=== PATIENT | male | born 1955 | race Caucasian/White ===

== ENCOUNTER 2023-03-25 13:49 | Emergency (ER) | payer SELFPAY ==
[~2023-03-25] VITALS: Ht 167.6 cm; Wt 75.3 kg
--- NOTE | 2023-03-25 13:55 | NUR ---
ER MD AT TRIAGE W/ PT FOR MSE
[2023-03-25] MEDS ORDERED: KETOROLAC TROMETHAMINE 15 MG INJ ONE (14:10)
[2023-03-25] MEDS ORDERED: HYDROCODONE/APAP 5-325MG TABLET ONE (14:10)
[2023-03-25] MEDS ORDERED: HYDROCODONE/APAP 5-325MG TABLET PO ONE (14:15)
[2023-03-25] MEDS ORDERED: KETOROLAC TROMETHAMINE 15 MG INJ IM ONE (14:15)
[2023-03-25] MEDS ORDERED: METH4TAB3 PO (14:36)
[2023-03-25] MEDS ORDERED: CYCL5TAB PO (14:36)
[2023-03-25] MEDS ORDERED: IBUP-1955 PO (14:36)
[2023-03-25] MEDS ORDERED: HYDR-3974 PO (14:36)
--- NOTE | 2023-03-25 14:48 | NUR ---
ABDOMINAL BINDER APPLIED; PT STATES HIS WAIST HAS MORE SUPPORT NOW; TOLERATED WELL
[2023-03-25 14:49] VITALS: BP 140/84
--- NOTE | 2023-03-25 14:49 | NUR ---
Patient discharged to home in stable condition. Written and verbal after care instructions given. Patient verbalizes understanding of instructions. Stressed follow up or return to ER for worsening s/s.
--- NOTE | 2023-03-25 14:50 | NUR ---
PT CAME WITH HIS DAUGHTER AND SHE WILL DRIVE HIM HOME. 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
== END 2023-03-25 14:51 | disposition home or self-care (01) ==
LOC: ER 13:49
DX: M54.42 Lumbago with sciatica, left side (principal); M54.41 Lumbago with sciatica, right side; G89.29 Other chronic pain; E11.9 Type 2 diabetes mellitus without complications
CPT/HCPCS: 99283; 82962; 96372; J1885; A4663

== ENCOUNTER 2023-04-02 14:20 | Emergency (ER) | payer MEDICAID ==
[~2023-04-02] VITALS: Ht 167.6 cm; Wt 75.3 kg
[~2023-04-02 14:20] MED LIST: CYCL5TAB PO; HYDR-3974 PO; IBUP-1955 PO; METH4TAB3 PO
[2023-04-02] MEDS ORDERED: diphenhydrAMINE 50 MG/1 ML VIAL IM ONE (15:15)
[2023-04-02] MEDS ORDERED: HYDROMORPHONE 1 MG/1 ML DISP.SYRIN IM ONE (15:15)
[2023-04-02] MEDS ORDERED: diphenhydrAMINE 50 MG/1 ML VIAL ONE (15:19)
[2023-04-02] MEDS ORDERED: HYDROMORPHONE 1 MG/1 ML DISP.SYRIN ONE (15:19)
--- NOTE | 2023-04-02 15:44 | NUR ---
Pt back from Ct resting in bed, denies pain/discomfort at this time.
[2023-04-02] MEDS ORDERED: OXYC-133 PO (17:10)
[2023-04-02 17:23] VITALS: BP 144/79
--- NOTE | 2023-04-02 17:30 | NUR ---
Patient discharged to home in stable condition. Written and verbal after care instructions given. Patient verbalizes understanding of instructions. Stressed follow up or return to ER for worsening s/s. Pt walked out of ER using own cane.
[2023-04-02] MEDS ORDERED: HYDR-3980 PO (18:09)
== END 2023-04-02 17:31 | disposition home or self-care (01) ==
LOC: ER 14:20
DX: M54.42 Lumbago with sciatica, left side (principal); M54.41 Lumbago with sciatica, right side; G89.29 Other chronic pain; E11.9 Type 2 diabetes mellitus without complications; Z79.1 Long term (current) use of non-steroidal anti-inflammatories (NSAID); Z79.899 Other long term (current) drug therapy
CPT/HCPCS: 99285; 72131; 96372 ×2; J1200; J1170; A4663

== ENCOUNTER 2023-12-19 14:42 | Emergency (ER) | payer MEDICARE, OTHER ==
[~2023-12-19] VITALS: Ht 167.6 cm; Wt 77.1 kg
[~2023-12-19 14:42] MED LIST changes: +CARI350T PO; +HYDR-3980 PO; +HYDR-4209 PO; +OXYC-133 PO
[2023-12-19 17:08] LABS: BASOPHILS % (AUTO) 0.5 % (0.0-2.0); EOSINOPHILS # (AUTO) 0.2 K/uL (0.0-0.7); EOSINOPHILS % (AUTO) 3.4 % (0.0-7.0); HEMATOCRIT 37.2 % (36.7-47.1); HEMOGLOBIN 12.2 g/dL (12.5-16.3); LYMPHOCYTES # (AUTO) 1.9 K/uL (0.8-4.8); LYMPHOCYTES % (AUTO) 34.8 % (20.5-51.5); MEAN CORPUSCULAR HEMOGLOBIN 30.5 uug (23.8-33.4); MEAN CORPUSCULAR HGB CONC 33 g/dL (32.5-36.3); MEAN CORPUSCULAR VOLUME 92.6 fL (73.0-96.2); MONOCYTES # (AUTO) 0.4 K/uL (0.1-1.30); MONOCYTES % (AUTO) 8.1 % (0.0-11.0); NEUTROPHILS # (AUTO) 2.9 K/uL (1.8-8.9); NEUTROPHILS % (AUTO) 53.2 % (38.5-71.5); PLATELET COUNT (AUTO) 259 K/uL (152-348); RED BLOOD CELL COUNT(AUTO) 4.01 MIL/uL (4.06-5.63); RED CELL DISTRIBUTION WIDTH 13.2 % (12.1-16.2); WHITE BLOOD COUNT (AUTO) 5.5 K/uL (3.6-10.2)
[2023-12-19 17:10] LABS: CARBON DIOXIDE 25 mmol/L (21-32); CHLORIDE 106 mmol/L (98-107); CREATININE 0.9 mg/dL (0.6-1.3); GLUCOSE 107 mg/dL (74-106); SODIUM SERUM 141 mmol/L (136-145); UREA NITROGEN, BLOOD 10 mg/dL (7-18)
[2023-12-19 17:14] LABS: DIFFERENTIAL COMMENT 1
[2023-12-19 17:23] LABS: NT-PRO BNP 71 pg/mL (0-125)
[2023-12-19] MEDS ORDERED: OXYCODONE/APAP 5-325 MG TABLET ONE (18:05)
[2023-12-19] MEDS: OXYCODONE/APAP 5-325 MG TABLET PO ONE (18:09)
[2023-12-19] MEDS ORDERED: HYDR-3980 PO (19:49)
[2023-12-19 19:55] VITALS: BP 155/80; O2SAT 97
== END 2023-12-19 19:55 | disposition home or self-care (01) ==
LOC: ER 14:46
DX: R09.1 Pleurisy (principal); E11.9 Type 2 diabetes mellitus without complications; Z79.899 Other long term (current) drug therapy
CPT/HCPCS: 36415; 71045; 83735; 84484; 85025; 87040; 93005; A4606; A4663